=== PATIENT | male | born 1990 | race Caucasian/White ===

== ENCOUNTER 2019-01-30 14:28 | Outpatient (RCR) | payer OTHER | END 2019-03-19 15:42 | disposition home or self-care (01) | LOC: WSOH 14:28 | DX: S39.012A Strain of muscle, fascia and tendon of lower back, initial encounter (principal); X50.0XXA Overexertion from strenuous movement or load, initial encounter; Y92.512 Supermarket, store or market as the place of occurrence of the external cause; Y93.89 Activity, other specified; Y99.0 Civilian activity done for income or pay; F32.9 Major depressive disorder, single episode, unspecified; F31.9 Bipolar disorder, unspecified; F41.9 Anxiety disorder, unspecified; G40.909 Epilepsy, unspecified, not intractable, without status epilepticus ==